=== PATIENT | female | born 1935 | race Caucasian/White ===

== ENCOUNTER 2017-05-16 13:22 | Inpatient (IN) | payer OTHER ==
[~2017-05-16] VITALS: Ht 165.1 cm; Wt 74.8 kg
[2017-05-16 14:09] VITALS: BP 136/88
--- NOTE | 2017-05-16 14:13 | NUR ---
DR WHITE IN ROOM FOR EXAM, PT C/O PAIN TO LEFT HIP AREA 02/26
[2017-05-16] MEDS ORDERED: MORPHINE SULFATE 2 MG/ML SYR IVP ONE (14:20)
[2017-05-16] MEDS ORDERED: NACL 0.9% 500 ML IV ONE ×2 (14:20)
[2017-05-16] MEDS ORDERED: ALPR0.5T2 PO (14:20)
[2017-05-16] MEDS ORDERED: [UNRECOGNIZED DRUG - CODE] PO (14:20)
[2017-05-16 14:31] LABS: BASOPHILS # (AUTO) 0.1 K/uL (0.00-0.22); BASOPHILS % (AUTO) 1.1 % (0.0-2.0); EOSINOPHILS # (AUTO) 0.3 K/uL (0-0.4); EOSINOPHILS % (AUTO) 2.4 % (0.0-4.0); HEMATOCRIT 42.9 % (36-48); LYMPHOCYTES # (AUTO) 1.6 K/uL (2.5-16.5); MEAN CORPUSCULAR HEMOGLOBIN 31 pg (27-31); MEAN CORPUSCULAR HGB CONC 33 g/dL (33-37); MEAN CORPUSCULAR VOLUME 94 fL (80-94); MONOCYTES # (AUTO) 0.5 K/uL (0.8-1.0); NEUTROPHILS % (AUTO) 79.5 % (42.2-75.2); PLATELET COUNT (AUTO) 199 K/uL (140-450); RED BLOOD CELL COUNT(AUTO) 4.56 MIL/uL (4.20-5.40); RED CELL DISTRIBUTION WIDTH 15.1 % (11.6-13.7); WHITE BLOOD COUNT (AUTO) 12.5 K/uL (4.8-10.8)
[2017-05-16 15:20] LABS: ALBUMIN 2.7 g/dL (3.4-5.0); ANION GAP 6.8 (8-16); ASPARTATE AMINOTRANSFERASE 38 U/L (15-37); CARBON DIOXIDE 31.3 mmol/L (21-32); CHLORIDE 106 mmol/L (98-107); CREATININE 0.9 mg/dL (0.6-1.3); GLUCOSE 142 mg/dL (74-106); POTASSIUM 4.1 mmol/L (3.5-5.1); SODIUM SERUM 140 mmol/L (136-145); TOTAL BILIRUBIN 0.5 mg/dL (0.0-1.0); UREA NITROGEN, BLOOD 16 mg/dL (7-18)
--- NOTE | 2017-05-16 15:49 | NUR ---
SON AT BEDSIDE, REPORTS PT IS STILL C/O PAIN. DR WHITE INFORMED.AWAITING FOR ORDERS
[2017-05-16] MEDS ORDERED: NACL 0.9% 1,000 ML IV SCH (16:14)
[2017-05-16] MEDS ORDERED: ACETAMINOPHEN 325 MG TAB PO PRN (16:15)
[2017-05-16] MEDS ORDERED: ONDANSETRON 4 MG/2 ML VIAL IVP PRN (16:15)
--- NOTE | 2017-05-16 16:19 | NUR ---
DR WHITE INFORMED AGAIN THAT PT IS C/O LEFT HIP PAIN, STATES HE CORINNE PUT IN ORDERS.
[2017-05-16] MEDS: MORPHINE SULFATE 2 MG/ML SYR IVP PRN ×2 (16:24→21:25)
--- NOTE | 2017-05-16 16:26 | NUR ---
MEDICATED ORDERED. SON AT BEDSIDE, UPDATED ON PLAN OF CARE, VERBALIZED UNDERSTANDING.
--- NOTE | 2017-05-16 16:43 | NUR ---
Patient will be admitted to care of rn. Admited to . Will go to room. Belongings list completed. Report to .
[2017-05-16] MEDS: SODIUM PHOSPHATE 118 ML ENEM RC SCH ×2 (17:00→17:29)
[2017-05-16] MEDS ORDERED: ALPRAZolam 0.5 MG TAB PO SCH (17:00)
--- NOTE | 2017-05-16 17:03 | NUR ---
REPORT GIVEN TO JOCY KRISHNAN IN TELE, BELONGINGS WITH PT. INFORMED HER THAT SON BROUGHT IN HOME MEDS EULOIGO.
[2017-05-16 17:24] LABS: APPEARANCE,URINE HAZY (CLEAR); BILIRUBIN,URINE NEGATIVE (NEGATIVE); BLOOD, URINE TRACE-L (NEGATIVE); COLOR,URINE YELLOW (YELLOW); LEUKOCYTE ESTERASE ,URINE TRACE (NEGATIVE); NITRITE, URINE POSITIVE (NEGATIVE); UGLUCOSE NEGATIVE (NEGATIVE)
[2017-05-16 17:29] LABS: RBC,URINE 3-10 (FEW) /HPF (0-5); WBC,URINE 6-15 (FEW) /HPF (0-5)
[2017-05-16 17:30] VITALS: BP 126/62
--- NOTE | 2017-05-16 17:30 | NUR ---
RECEIVED PT VIA GURNEY FROM THE ER. PT IN STABLE CONDITION. PT AAOX4, ON ROOM AIR. IV TO L AC 20G PATENT AND INTACT, INFUSING WELL. SKIN IS INTACT. RESPIRATIONS ARE EVEN AND UNLABORED. SKIN IS WARM AND DRY TO TOUCH. INITIAL ASSESSMENT COMPLETED. PLAN OF CARE DISCUSSED WITH SON AND PT AT THE BEDSIDE, VERBALIZED UNDERSTANDING. ALL SAFETY PRECAUTIONS MET, CALL LIGHT WITHIN REACH, WILL CONTINUE TO MONITOR
[2017-05-16 17:34] LABS: BARBITURATE, URINE NEG. ng/ml (NEG <=200); BENZODIAZEPINE, URINE POS. ng/mL (NEG <=200); CANNABINOID, URINE NEG. ng/mL (NEG <=50); COCAINE, URINE NEG. ng/mL (NEG <=300); OPIATE, URINE NEG. ng/mL (NEG <=2000); PHENCYCLIDINE SCREEN,URINE NEG. ng/mL (NEG <=25)
[2017-05-16] MEDS: VENLAFAXINE 37.5 MG TAB PO SCH (17:43)
[2017-05-16] MEDS: CYCLOBENZAPRINE 10 MG TAB PO SCH (17:44)
--- NOTE | 2017-05-16 17:45 | NUR ---
ARCHITECT INTERNSHIP NUMBER [id number] USED TO DISCUSS ADMISSION QUESTIONS AND MEDICATIONS THAT WILL BE GIVEN, USES, SIDE EFFECTS AND BENEFITS. PT AND SON VERBALIZED UNDERSTANDING. ALL SAFETY PRECAUTIONS MET, CALL LIGHT WITHIN REACH, WILL CONTINUE TO MONITOR
[2017-05-16 17:54] LABS: CHOL/HDL RATIO 3.4 (1-4.5); FREE T4 (FREE THYROXINE) 1.31 ng/dL (0.76-1.46); MAGNESIUM 2.1 mg/dL (1.8-2.4); PHOSPHORUS 3.4 mg/dL (2.5-4.9); THYROID STIMULATING HORMONE 2.48 uIU/mL (0.34-3.74)
[2017-05-16] MEDS: DEXT 5% /NACL 0.9% 1,000 ML IV SCH (18:30)
[2017-05-16] MEDS ORDERED: DEXTROSE 50% 50 ML SYR IVP PRN (18:35)
--- NOTE | 2017-05-16 19:00 | NUR ---
CRITICAL LAB VALUE RECEIVED FOR LACTIC ACID 3.[address] FAUSTIN AWARE
--- NOTE | 2017-05-16 19:15 | NUR ---
DR. ESCAMILLA IN TO SEE PT, EXPLAINED PROCEDURE TO PT AND SON, VERBALIZED UNDERSTANDING. DR. ESCAMILLA SAID HE WOULD DO THE SURGERY TOMORROW AND ORDERED FOR CONSENT TO BE SIGNED
[2017-05-16 20:00] VITALS: BP 102/62
[2017-05-16] MEDS ORDERED: cefTRIAXone 1,000 MG VIAL ONE (20:01)
[2017-05-16] MEDS: BISACODYL 10 MG SUPP RC PRN (20:18)
--- NOTE | 2017-05-16 20:45 | NUR ---
VACUUM PLASTIC FORMING MACHINE OPERATOR [id number] USED FOR SIGNED CONSENT FOR THE OPEN TREATMENT OF LEFT HIP FX. PT AND SON VERBALIZED UNDERSTANDING.
--- NOTE | 2017-05-16 21:00 | NUR ---
PAGED DR. FAUSTIN TO CHANGE URINE CULTURE, AND MRSA TO COLLECTED
--- NOTE | 2017-05-16 21:02 | NUR ---
PT BEING WHEELED OFF THE FLOOR IN STABLE CONDITION FOR CT OF THE HEAD. NO S/S OF DISTRESS
--- NOTE | 2017-05-16 21:05 | NUR ---
PAGED DR. FAUSTIN REGARDING UNCOLLECTED BLOOD CULTURE ORDER
--- NOTE | 2017-05-16 21:20 | NUR ---
PT BACK FROM CT IN STABLE CONDITION
[2017-05-16] MEDS: CALCIUM CARB/VIT-D 500 MG/200 IU 1 TAB PO SCH (21:26)
[2017-05-16] MEDS: ALPRAZolam 0.5 MG TAB PO SCH (21:26)
[2017-05-16] MEDS: DOCUSATE SODIUM 100 MG GELCAP PO SCH (21:28)
[2017-05-16] MEDS: BLOOD GLUCOSE MONITORING 1 DEV DEV FS SCH (21:35)
[2017-05-16] MEDS: INSULIN LISPRO SLIDING SCALE 100 UNITS/ML VIAL SUBQ PRN (21:35)
--- NOTE | 2017-05-16 22:38 | NUR ---
CRITICAL LAB VALUE OF LACTIC ACID 3.[address] FAUSTIN AWARE
[2017-05-16 23:13] LABS: APPEARANCE,URINE SL CLOUDY (CLEAR); BILIRUBIN,URINE NEGATIVE (NEGATIVE); BLOOD, URINE TRACE-I (NEGATIVE); COLOR,URINE YELLOW (YELLOW); LEUKOCYTE ESTERASE ,URINE NEGATIVE (NEGATIVE); NITRITE, URINE POSITIVE (NEGATIVE); UGLUCOSE NEGATIVE (NEGATIVE)
[2017-05-17] VITALS (10 sets, daily range): BP systolic 91–129; BP diastolic 52–75
[2017-05-17 00:07] LABS: RBC,URINE 0-5 (RARE) /HPF (0-5)
[2017-05-17] MEDS: MORPHINE SULFATE 2 MG/ML SYR IVP PRN ×2 (05:53→23:44)
--- NOTE | 2017-05-17 06:20 | NUR ---
DR. ORELLANA PUTTING PT IN BUCKS TRACTION NOW
[2017-05-17] MEDS: BLOOD GLUCOSE MONITORING 1 DEV DEV FS SCH ×4 (06:38→20:53)
[2017-05-17] MEDS: INSULIN LISPRO SLIDING SCALE 100 UNITS/ML VIAL SUBQ PRN ×3 (06:38→21:01)
[2017-05-17 06:59] LABS: BASOPHILS # (AUTO) 0.1 K/uL (0.00-0.22); EOSINOPHILS % (AUTO) 0.2 % (0.0-4.0); HEMATOCRIT 34.7 % (36-48); HEMOGLOBIN 11.6 g/dL (12.0-16.0); LYMPHOCYTES % (AUTO) 14.9 % (20.5-51.1); MEAN CORPUSCULAR HEMOGLOBIN 32 pg (27-31); MEAN CORPUSCULAR HGB CONC 33 g/dL (33-37); MEAN CORPUSCULAR VOLUME 95 fL (80-94); MONOCYTES # (AUTO) 1.1 K/uL (0.8-1.0); NEUTROPHILS # (AUTO) 4.8 K/uL (1.8-7.7); NEUTROPHILS % (AUTO) 67.9 % (42.2-75.2); PLATELET COUNT (AUTO) 160 K/uL (140-450); RED BLOOD CELL COUNT(AUTO) 3.65 MIL/uL (4.20-5.40); RED CELL DISTRIBUTION WIDTH 14.6 % (11.6-13.7)
--- NOTE | 2017-05-17 07:15 | NUR ---
ASSUMED CONTINUITY OF CARE. NO SIGNS AND SYMPTOMS OF ACUTE DISTRESS NOTICED. INITIAL ASSESSMENT DONE. KEEP COMFORTABLE ON BED. EXPLAINED DIAGNOSIS, PLAN OF CARE, PAIN MANAGEMENT TEACHING, USE OF CALL LIGHT/BED/TV/BATHROOM. VERBALIZED UNDERSTANDING. FALL PRECAUTION APPLIED. CALL LIGHT WITHIN REACH.
--- NOTE | 2017-05-17 07:22 | NUR ---
REPORT GIVEN TO STEPHANY PEREZ FOR CONTINUITY OF CARE, OT IN STABLE CONDITION
[2017-05-17 07:25] LABS: ANION GAP 8.5 (8-16); CARBON DIOXIDE 29.3 mmol/L (21-32); CHLORIDE 108 mmol/L (98-107); CREATININE 0.9 mg/dL (0.6-1.3); GLUCOSE 186 mg/dL (74-106); POTASSIUM 3.8 mmol/L (3.5-5.1); SODIUM SERUM 142 mmol/L (136-145); UREA NITROGEN, BLOOD 16 mg/dL (7-18)
--- NOTE | 2017-05-17 07:25 | NUR ---
Patient's Plan of Care was discussed and reviewed with ANA: STEPHANY Hwang LVN.
[2017-05-17] MEDS: PANTOPRAZOLE 40 MG INJ VIAL IVP SCH (08:46)
[2017-05-17] MEDS: DOCUSATE SODIUM 100 MG GELCAP PO SCH ×2 (08:52→20:44)
[2017-05-17] MEDS: LACTOBACILLUS RHAMNOSUS GG 1 EACH CAP PO SCH (08:53)
[2017-05-17] MEDS: CYCLOBENZAPRINE 10 MG TAB PO SCH ×3 (08:53→16:50)
[2017-05-17] MEDS: CALCIUM CARB/VIT-D 500 MG/200 IU 1 TAB PO SCH ×2 (08:53→20:44)
[2017-05-17] MEDS: VENLAFAXINE 37.5 MG TAB PO SCH (08:53)
[2017-05-17] MEDS: ALPRAZolam 0.5 MG TAB PO SCH ×2 (08:54→20:43)
--- NOTE | 2017-05-17 09:21 | NUR ---
PATIENT HAS BEEN SCREENED AND CATEGORIZED HIGH NUTRITION RISK. PATIENT WILL BE SEEN WITHIN 1-2 DAYS OF ADMISSION. 05/16/17-05/17/[address]
[2017-05-17] MEDS ORDERED: BUPIVACAINE-MPF 0.25% 30 ML VIAL INJ ONE (10:35)
[2017-05-17] MEDS ORDERED: ceFAZolin 1,000 MG VIAL ONE ×4 (10:35→20:59)
--- NOTE | 2017-05-17 10:38 | NUR ---
WENT TO OR FOR PROCEDURE VIA GURNEY, ACCOMPANIED BY PTSean PARKER. IN STABLE CONDITION.
[2017-05-17] MEDS ORDERED: fentaNYL 0.05 MG/ML VIAL ONE (11:02)
[2017-05-17] MEDS ORDERED: SEVOFLURANE 250 ML BTL INH ONE (11:25)
[2017-05-17] MEDS ORDERED: ONDANSETRON 4 MG/2 ML VIAL IVP ONE (11:25)
[2017-05-17] MEDS ORDERED: KETOROLAC 15 MG/ML VIAL IM ONE (11:25)
[2017-05-17] MEDS: DEXT 5% /NACL 0.9% 1,000 ML IV SCH (12:28)
[2017-05-17 14:11] LABS: BASOPHILS # (AUTO) 0.2 K/uL (0.00-0.22); BASOPHILS % (AUTO) 1.5 % (0.0-2.0); EOSINOPHILS % (AUTO) 0.2 % (0.0-4.0); HEMATOCRIT 24.8 % (36-48); HEMOGLOBIN 8.3 g/dL (12.0-16.0); LYMPHOCYTES # (AUTO) 0.7 K/uL (2.5-16.5); LYMPHOCYTES % (AUTO) 5.5 % (20.5-51.1); MEAN CORPUSCULAR HEMOGLOBIN 31 pg (27-31); MEAN CORPUSCULAR HGB CONC 33 g/dL (33-37); MEAN CORPUSCULAR VOLUME 93 fL (80-94); MONOCYTES # (AUTO) 1.1 K/uL (0.8-1.0); NEUTROPHILS # (AUTO) 10.7 K/uL (1.8-7.7); NEUTROPHILS % (AUTO) 83.8 % (42.2-75.2); PLATELET COUNT (AUTO) 157 K/uL (140-450); RED BLOOD CELL COUNT(AUTO) 2.67 MIL/uL (4.20-5.40); RED CELL DISTRIBUTION WIDTH 14.5 % (11.6-13.7); WHITE BLOOD COUNT (AUTO) 12.7 K/uL (4.8-10.8)
--- NOTE | 2017-05-17 14:34 | NUR ---
05/17/17 RD INITIAL ASSESSMENT COMPLETED PLEASE REFER TO NUTRITION ASSESSMENT UNDER CARE ACTIVITY FOR ESTIMATED NUTRITIONAL NEEDS. 1.PT TO REMAIN NPO UNTIL MEDICALLY NECESSARY TO ADVANCE DIET 2.ADVANCE TO 60 GM CCHO DIET ONCE APPROPRIATE. 3.RD TO FOLLOW-UP IN 2-3 DAYS, HIGH RISK JESSE HOOVER, RD
--- NOTE | 2017-05-17 14:35 | NUR ---
BACK FROM OR VIA GURNEY. AWAKE, ALERT, AND ORIENTED X3. IN STABLE CONDITION. KEEP COMFORTABLE ON BED.
--- NOTE | 2017-05-17 19:19 | NUR ---
BEDSIDE REPORT GIVEN TO JOCY WARREN -EULOGIO. IVF INFUSING WELL. IN STABLE CONDITION.
--- NOTE | 2017-05-17 19:20 | NUR ---
REPORT RECEIVED FROM DAY NURSE STEPHANY KRISHNAN, PT IN STABLE CONDITION. NO S/S OF DISTRESS NOTED. PT IS AAOX3, S/P OPEN TREATMENT OF THE L HIP. PT HAS 3 INCISIONS COVERED BY DRESSING FROM SURGEON. DRESSING IS DRY AND INTACT AT THIS TIME. IV TO L AC 20G PATENT AND INTACT, INFUSING WELL. RESPIRATIONS ARE EVEN AND UNLABORED. SKIN IS WARM AND DRY TO TOUCH. MEJIA IS DRAINING CLEAR YELLOW URINE VIA GRAVITY. SON AND HIS ARE AT THE BEDSIDE. INITIAL ASSESSMENT COMPLETED. PLAN OF CARE DISCUSSED WITH PT AND SON, AT THE BEDSIDE, VERBALIZED UNDERSTANDING. ALL SAFETY PRECAUTIONS MET, CALL LIGHT WITHIN REACH, WILL CONTINUE TO MONITOR
--- NOTE | 2017-05-17 20:15 | NUR ---
PT IN STABLE CONDITION. NO S/S OF DISTRESS NOTED. VS STABLE. PTS DRESSINGS DRY AND INTACT, WILL CONTINUE TO MONITOR
--- NOTE | 2017-05-17 22:00 | NUR ---
PT IN STABLE CONDITION. NO S/S OF DISTRESS NOTED. VS STABLE. PTS DRESSINGS DRY AND INTACT, WILL CONTINUE TO MONITOR
--- NOTE | 2017-05-17 23:42 | NUR ---
PTS DRESSING ON HIP AND DRESSING BY KNEE ARE ACTIVELY BLEEDING NOW. DRESSING IS BECOMING SATURATED. PAGED DR. ESCAMILLA. CHARGE NURSE WINTER KRISHNAN IS PUTTING ON NEW DRESSING AND REINFORCING
[2017-05-18] VITALS (8 sets, daily range): BP systolic 104–129; BP diastolic 55–81
--- NOTE | 2017-05-18 00:15 | NUR ---
PAGED DR. ESCAMILLA AGAIN, AWAITING CALL BACK
--- NOTE | 2017-05-18 02:00 | NUR ---
VS STABLE AT THIS TIME, DRESSING ARE DRY AND INTACT. WILL CONTINUE TO MONITOR
--- NOTE | 2017-05-18 04:00 | NUR ---
PT IN STABLE CONDITION. NO S/S OF DISTRESS NOTED. DRESSING DRY AND INTACT
--- NOTE | 2017-05-18 05:00 | NUR ---
RESIDENTS MADE AWARE OF SATURATED DRESSING FROM THE NIGHT AND THAT DRESSING WAS CHANGED
[2017-05-18] MEDS ORDERED: ceFAZolin 1,000 MG VIAL ONE (05:14)
[2017-05-18] MEDS: INSULIN LISPRO SLIDING SCALE 100 UNITS/ML VIAL SUBQ PRN ×3 (06:26→17:40)
[2017-05-18] MEDS: BLOOD GLUCOSE MONITORING 1 DEV DEV FS SCH ×4 (06:32→21:54)
--- NOTE | 2017-05-18 07:32 | NUR ---
GAVE REPORT TO DAY NURSE FOR CONTINUITY OF CARE, PT IN STABLE CONDITION. NO S/S OF DISTRESS NOTED. DRESSINGS DRY AND INTACT, IV PATENT
--- NOTE | 2017-05-18 07:35 | NUR ---
RECEIVED PT ON BED ASLEEP, AROUSABLE, ORIENTED X1. NO SIGNS OF PAIN AT THIS TIME. IV TO LT AC PATENT AND INTACT. CHEST, DIMINISHED AIR ENTRY TO THE BASES. ABDOMEN SOFT, BOWEL SOUNDS PRESENT. WILL REPOSITION PT EVERY 2 HRS. WITH LT HIP SURGICAL INCISIONS S/P OPEN TREATMENT OF LT HIP FX, DRESSINGS DRY AND AND INTACT. WITH MEJIA CATHETER DRAINING MODERATE AMOUNTS OF SLIGHTLY DARK FRANCES URINE. WILL REPOSITION PT EVERY 2 HRS. BED ON LOW POSITION, 3 SIDE RAILS UP, BED ALARM ON. WILL CONTINUE TO MONITOR PT.
[2017-05-18 08:11] LABS: BASOPHILS # (AUTO) 0.1 K/uL (0.00-0.22); BASOPHILS % (AUTO) 1.3 % (0.0-2.0); EOSINOPHILS % (AUTO) 0.2 % (0.0-4.0); HEMATOCRIT 23.7 % (36-48); HEMOGLOBIN 7.7 g/dL (12.0-16.0); LYMPHOCYTES # (AUTO) 1.2 K/uL (2.5-16.5); MEAN CORPUSCULAR HEMOGLOBIN 31 pg (27-31); MEAN CORPUSCULAR HGB CONC 33 g/dL (33-37); MEAN CORPUSCULAR VOLUME 96 fL (80-94); NEUTROPHILS # (AUTO) 6.6 K/uL (1.8-7.7); NEUTROPHILS % (AUTO) 74.5 % (42.2-75.2); PLATELET COUNT (AUTO) 163 K/uL (140-450); RED BLOOD CELL COUNT(AUTO) 2.47 MIL/uL (4.20-5.40); WHITE BLOOD COUNT (AUTO) 8.9 K/uL (4.8-10.8)
[2017-05-18 08:14] LABS: ANION GAP 10.3 (8-16); CHLORIDE 111 mmol/L (98-107); GLUCOSE 180 mg/dL (74-106); POTASSIUM 4.3 mmol/L (3.5-5.1); SODIUM SERUM 146 mmol/L (136-145); UREA NITROGEN, BLOOD 20 mg/dL (7-18)
[2017-05-18] MEDS: CALCIUM CARB/VIT-D 500 MG/200 IU 1 TAB PO SCH ×2 (10:02→21:28)
[2017-05-18] MEDS: LACTOBACILLUS RHAMNOSUS GG 1 EACH CAP PO SCH (10:02)
[2017-05-18] MEDS: DOCUSATE SODIUM 100 MG GELCAP PO SCH ×2 (10:02→21:39)
[2017-05-18] MEDS: CYCLOBENZAPRINE 10 MG TAB PO SCH ×3 (10:03→17:17)
[2017-05-18] MEDS: ALPRAZolam 0.5 MG TAB PO SCH ×2 (10:03→21:29)
[2017-05-18] MEDS: VENLAFAXINE 37.5 MG TAB PO SCH (10:03)
[2017-05-18] MEDS: PANTOPRAZOLE 40 MG INJ VIAL IVP SCH (10:04)
[2017-05-18] MEDS ORDERED: SODIUM PHOSPHATE 118 ML ENEM RC SCH (10:18)
--- NOTE | 2017-05-18 13:00 | NUR ---
PT MOVED TO ISOLATION ROOM.
--- NOTE | 2017-05-18 13:15 | NUR ---
MODERATE AMOUNT OF BLEEDING NOTED ON LEFT KNEE INCISION. DRESSING CHANGED, [place] WRAPPED APPLIED. DR. SWEET NOTIFIED.
[2017-05-18 15:05] LABS: NEUTROPHILS # (AUTO) 5.9 K/uL (1.8-7.7)
[2017-05-18 15:16] LABS: BASOPHILS # (AUTO) 0.1 K/uL (0.00-0.22); BASOPHILS % (AUTO) 0.8 % (0.0-2.0); EOSINOPHILS # (AUTO) 0.1 K/uL (0-0.4); EOSINOPHILS % (AUTO) 1.7 % (0.0-4.0); LYMPHOCYTES # (AUTO) 1.1 K/uL (2.5-16.5); LYMPHOCYTES % (AUTO) 12.9 % (20.5-51.1); MEAN CORPUSCULAR HEMOGLOBIN 31 pg (27-31); MEAN CORPUSCULAR HGB CONC 33 g/dL (33-37); MEAN CORPUSCULAR VOLUME 95 fL (80-94); MONOCYTES % (AUTO) 12.5 % (1.7-9.3); NEUTROPHILS % (AUTO) 72.1 % (42.2-75.2); PLATELET COUNT (AUTO) 149 K/uL (140-450); RED CELL DISTRIBUTION WIDTH 14.9 % (11.6-13.7); WHITE BLOOD COUNT (AUTO) 8.2 K/uL (4.8-10.8)
[2017-05-18 15:20] LABS: HEMATOCRIT 20.9 % (36-48); HEMOGLOBIN 6.9 g/dL (12.0-16.0)
--- NOTE | 2017-05-18 15:30 | NUR ---
CONSENT FOR THORACENTESIS SIGNED BY PT'S SON AT THE BEDSIDE, VERBALIZED UNDERSTANDING OF THE PROCEDURE. DR. JACK CAME BUT CANCELLED THE PROCEDURE FOR NOW, STATED THAT PT IS NOT STABLE ENOUGH TO TURN MORE TO HER LEFT SIDE FOR THE PROCEDURE.
[2017-05-18] MEDS: HYDROcodone/APAP 7.5/325 MG 1 TAB PO PRN (17:17)
--- NOTE | 2017-05-18 18:00 | NUR ---
1 UNIT PRBC STARTED. WILL OBSERVE FOR ANY BLOOD TRANSFUSION REACTIONS.
--- NOTE | 2017-05-18 18:55 | NUR ---
SMALL AMOUNT OF LEAKING NOTED ON PRESENT IV SITE WHERE BLOOD TRANSFUSION ON GOING. TRIED RESTARTING A NEW LINE 2X BUT FAILED. WILL ENDORSE TO NEXT SHIFT NURSE FOR CONTINUITY OF CARE.
--- NOTE | 2017-05-18 19:30 | NUR ---
RECEIVED BEDSIDE REPORT FROM DAY SHIFT NURSE JACKIE RN, PT STABLE, NO DISTRESS NOTED, IV TO THE L AC 20G RUNNING PRBC, SMALL AMOUNT LEAKING NOTED, WILL ATTEMPT TO PUT NEW IV IN, MEJIA IN PLACE DRAINING YELLOW URINE, INITIAL ASSESSMENT DONE, ALL SAFETY PRECAUTION MET, FAMILY BY BEDSIDE, CALL LIGHT WITHIN REACH, WILL CONTINUE TO MONITOR.
--- NOTE | 2017-05-18 20:00 | NUR ---
NEW IV INSERTED 22 G ON THE L FA, PT TOLERATED WELL, NO DISTRESS NOTED, FAMILY BY BEDSIDE, CALL LIGHT WITHIN REACH,WILL CONTINUE TO MONITOR.
--- NOTE | 2017-05-18 21:00 | NUR ---
HEPARIN NOT GIVEN, NOTIFIED DR. FAUSTIN REGARDING PT BLEEDING ON THE L KNEE, DR ORDER TO HOLD HEPARIN.
--- NOTE | 2017-05-18 21:39 | NUR ---
DUE MEDICATION GIVEN, PT TOLERATED WELL, NO DISTRESS NOTED, FAMILY BY BEDSIDE NO DISTRESS NOTED, CALL LIGHT WITHIN REACH, WILL CONTINUE TO MONITOR.
[2017-05-18 21:59] LABS: BASOPHILS # (AUTO) 0.2 K/uL (0.00-0.22); BASOPHILS % (AUTO) 1.9 % (0.0-2.0); EOSINOPHILS # (AUTO) 0.1 K/uL (0-0.4); EOSINOPHILS % (AUTO) 0.8 % (0.0-4.0); HEMATOCRIT 25.3 % (36-48); HEMOGLOBIN 8.3 g/dL (12.0-16.0); LYMPHOCYTES # (AUTO) 1.2 K/uL (2.5-16.5); LYMPHOCYTES % (AUTO) 12.5 % (20.5-51.1); MEAN CORPUSCULAR HEMOGLOBIN 30 pg (27-31); MEAN CORPUSCULAR HGB CONC 33 g/dL (33-37); MEAN CORPUSCULAR VOLUME 93 fL (80-94); MONOCYTES # (AUTO) 1.3 K/uL (0.8-1.0); MONOCYTES % (AUTO) 14.4 % (1.7-9.3); NEUTROPHILS # (AUTO) 6.5 K/uL (1.8-7.7); NEUTROPHILS % (AUTO) 70.4 % (42.2-75.2); PLATELET COUNT (AUTO) 147 K/uL (140-450); RED BLOOD CELL COUNT(AUTO) 2.72 MIL/uL (4.20-5.40); RED CELL DISTRIBUTION WIDTH 15.3 % (11.6-13.7); WHITE BLOOD COUNT (AUTO) 9.3 K/uL (4.8-10.8)
[2017-05-19] VITALS (7 sets, daily range): BP systolic 103–115; BP diastolic 53–67
[2017-05-19] MEDS: HYDROcodone/APAP 7.5/325 MG 1 TAB PO PRN ×2 (03:24→16:29)
[2017-05-19] MEDS: BLOOD GLUCOSE MONITORING 1 DEV DEV FS SCH ×4 (06:43→21:02)
--- NOTE | 2017-05-19 07:15 | NUR ---
ENDORSEMENT RECEIVED FROM CORRUGATOR NURSE. PATIENT IS SLEEPING. RESPIRATION EVEN, UNLABOR. SKIN DRY AND WARM. IV PATENT AND INTACT. NO DISTRESS NOTED AT THIS TIME. BED AT LOW POSITION, SIDE RAILS UP. FAMILY AT BEDSIDE. CALL LIGHT WITHIN REACH. WILL CONTINUE TO MONITOR
--- NOTE | 2017-05-19 07:30 | NUR ---
GAVE BEDSIDE REPORT TO DAY SHIFT NURSE STAR KRISHNAN, PT STABLE, NO DISTRESS NOTED, ENDORSED PLAN OF CARE, CALL LIGHT WITHIN REACH.
[2017-05-19 08:46] LABS: BASOPHILS # (AUTO) 0.1 K/uL (0.00-0.22); EOSINOPHILS # (AUTO) 0.1 K/uL (0-0.4); EOSINOPHILS % (AUTO) 1.3 % (0.0-4.0); HEMATOCRIT 23.4 % (36-48); LYMPHOCYTES # (AUTO) 1.2 K/uL (2.5-16.5); LYMPHOCYTES % (AUTO) 14.4 % (20.5-51.1); MEAN CORPUSCULAR HEMOGLOBIN 32 pg (27-31); MEAN CORPUSCULAR HGB CONC 34 g/dL (33-37); MEAN CORPUSCULAR VOLUME 93 fL (80-94); MONOCYTES # (AUTO) 0.9 K/uL (0.8-1.0); MONOCYTES % (AUTO) 10.5 % (1.7-9.3); NEUTROPHILS # (AUTO) 5.8 K/uL (1.8-7.7); NEUTROPHILS % (AUTO) 72.8 % (42.2-75.2); PLATELET COUNT (AUTO) 125 K/uL (140-450); RED BLOOD CELL COUNT(AUTO) 2.51 MIL/uL (4.20-5.40); RED CELL DISTRIBUTION WIDTH 15.5 % (11.6-13.7); WHITE BLOOD COUNT (AUTO) 8.1 K/uL (4.8-10.8)
[2017-05-19] MEDS: LACTOBACILLUS RHAMNOSUS GG 1 EACH CAP PO SCH ×2 (09:00→09:53)
[2017-05-19 09:36] LABS: ANION GAP 6.4 (8-16); CARBON DIOXIDE 30.4 mmol/L (21-32); CHLORIDE 112 mmol/L (98-107); CREATININE 0.9 mg/dL (0.6-1.3); GLUCOSE 161 mg/dL (74-106); POTASSIUM 3.8 mmol/L (3.5-5.1); SODIUM SERUM 145 mmol/L (136-145); UREA NITROGEN, BLOOD 21 mg/dL (7-18)
[2017-05-19 09:39] LABS: MAGNESIUM 1.9 mg/dL (1.8-2.4); PHOSPHORUS 2.4 mg/dL (2.5-4.9)
[2017-05-19] MEDS: PANTOPRAZOLE 40 MG INJ VIAL IVP SCH (09:51)
[2017-05-19] MEDS: CALCIUM CARB/VIT-D 500 MG/200 IU 1 TAB PO SCH ×2 (09:52→20:59)
[2017-05-19] MEDS: VENLAFAXINE 37.5 MG TAB PO SCH (09:52)
[2017-05-19] MEDS: ALPRAZolam 0.5 MG TAB PO SCH ×2 (09:52→21:00)
[2017-05-19] MEDS: CYCLOBENZAPRINE 10 MG TAB PO SCH ×3 (09:53→16:29)
[2017-05-19] MEDS: DOCUSATE SODIUM 100 MG GELCAP PO SCH ×2 (09:53→21:02)
[2017-05-19] MEDS ORDERED: NACL 0.9% 1,000 ML IV SCH (10:15)
--- NOTE | 2017-05-19 12:22 | NUR ---
05/19/17 RD FOLLOW UP COMPLETED PLEASE REFER TO NUTRITION PROGRESS NOTE UNDER CARE ACTIVITY FOR ESTIMATED NUTRITION NEEDS. RD RECOMMENDATIONS: 1. CONTINUE ON CCHO 60 GM DIET TOLERATED. 2. RDN TO PROVIDE DIET HEALTH SHAKES WITH ALL MEALS TO HELP MEET ESTIMATED NEEDS. 3. RDN TO FOLLOW-UP IN 3-5 DAYS, MODERATE RISK MARCE WALLACE MS, RDN
[2017-05-19] MEDS: INSULIN LISPRO SLIDING SCALE 100 UNITS/ML VIAL SUBQ PRN ×2 (12:28→17:15)
--- NOTE | 2017-05-19 13:00 | NUR ---
PATIENT IS AWAKE, ALERT. RESPIRATION EVEN, UNLABOR. DENIED PAIN AT THIS TIME. MED WAS GIVEN PER ORDER. FAMILY AT BEDSIDE. WOUND ASSESSMENT WAS DONE. CALL LIGHT WITHIN REACH
--- NOTE | 2017-05-19 15:31 | NUR ---
PATIENT IS AWAKE, ALERT. RESPIRATION EVEN, UNLABOR. DENIED PAIN, N/V AT THIS TIME. FAMILY AT BED SIDE. CALL LIGHT WITHIN REACH. WILL CONTINUE TO MONITOR
[2017-05-19 15:43] LABS: BASOPHILS # (AUTO) 0.1 K/uL (0.00-0.22); BASOPHILS % (AUTO) 1.3 % (0.0-2.0); EOSINOPHILS # (AUTO) 0.2 K/uL (0-0.4); EOSINOPHILS % (AUTO) 2.5 % (0.0-4.0); LYMPHOCYTES # (AUTO) 1.1 K/uL (2.5-16.5); LYMPHOCYTES % (AUTO) 13.9 % (20.5-51.1); MEAN CORPUSCULAR HEMOGLOBIN 32 pg (27-31); MEAN CORPUSCULAR HGB CONC 34 g/dL (33-37); MEAN CORPUSCULAR VOLUME 94 fL (80-94); MONOCYTES # (AUTO) 0.8 K/uL (0.8-1.0); MONOCYTES % (AUTO) 10.7 % (1.7-9.3); NEUTROPHILS # (AUTO) 5.7 K/uL (1.8-7.7); NEUTROPHILS % (AUTO) 71.6 % (42.2-75.2); PLATELET COUNT (AUTO) 116 K/uL (140-450); RED BLOOD CELL COUNT(AUTO) 2.16 MIL/uL (4.20-5.40); WHITE BLOOD COUNT (AUTO) 7.9 K/uL (4.8-10.8)
[2017-05-19 15:53] LABS: HEMATOCRIT 20.3 % (36-48); HEMOGLOBIN 6.9 g/dL (12.0-16.0)
--- NOTE | 2017-05-19 16:15 | NUR ---
DR. MATHIAS WAS MADE AWARE OF HG 6.9, HCT 20.3. WILL MEDICATE PER ORDER
[2017-05-19] MEDS: SODIUM PHOS / POTASSIUM PHOS 1 PKT PDR PO SCH (16:29)
[2017-05-19] MEDS: BISACODYL 10 MG SUPP RC PRN (16:36)
--- NOTE | 2017-05-19 16:57 | NUR ---
MED WAS GIVEN SUPPOSITORY PER ORDER. PATIENT TOLERATED WELL
--- NOTE | 2017-05-19 17:53 | NUR ---
PATIENT IS SLEEPING COMFORTABLY. RESPIRATION EVEN, UNLABOR. NO DISTRESS NOTED AT THIS TIME. IV PATENT AND INTACT. CALL LIGHT WITHIN REACH. FAMILY AT BEDSIDE. WILL CONTINUE TO MONITOR
--- NOTE | 2017-05-19 18:30 | NUR ---
PATIENT COMPLAINED OF LOWER ABDOMEN PAIN. MEJIA IS DRAINING OK. WILL MEDICATE PER ORDER. DRESSING WAS REENFORCED ON THE LEFT HIP, MINIMAL DRAINAGE.
--- NOTE | 2017-05-19 19:21 | NUR ---
ENDORSEMENT GIVEN TO THE SURGICAL SCHEDULER NURSE. PATIENT IS STABLE AT THIS TIME.
--- NOTE | 2017-05-19 19:22 | NUR ---
RECEIVED BEDSIDE REPORT FROM AUTOMATIC SERGING MACHINE OPERATOR NURSE STAR RN, PT STABLE, NO DISTRESS NOTED, REPORTED HAVING NO PAIN AT THIS MOMENT, DRESSING CLEAN DRY AND INTACT, ON 2LPM O2 VIA NC, SON BY BEDSIDE, INITIAL ASSESSMENT DONE, ALL SAFETY PRECAUTION MET, WILL CONTINUE TO MONITOR.
[2017-05-19] MEDS ORDERED: SODIUM PHOS / POTASSIUM PHOS 1 PKT PDR PO SCH (21:00)
--- NOTE | 2017-05-19 21:11 | NUR ---
DUE MEDICATION GIVEN, PT TOLERATED WELL, HEPARIN NOT GIVEN PER BLEEDING NOTED ON THE SURGICAL INCISION, PT STABLE, NO DISTRESS NOTED, SON BY BEDSIDE, CALL LIGHT WITHIN REACH, WILL CONTINUE TO MONITOR.
[2017-05-20] VITALS: BP 125/62
[2017-05-20] MEDS: MORPHINE SULFATE 2 MG/ML SYR IVP PRN ×3 (00:29→20:02)
--- NOTE | 2017-05-20 00:29 | NUR ---
PT CRYING AND MOANING, SON REPORTED PT HAVING PAIN OF 9/10, PT EVALUATED WITH FLACC AT 9/10, PAIN MEDICATION GIVEN, PT STABLE, NO DISTRESS NOTED, CALL LIGHT WITHIN REACH, SON BY BEDSIDE, WILL CONTINUE TO MONITOR.
--- NOTE | 2017-05-20 03:20 | NUR ---
CHECKED ON PT, PT SLEEPING COMFORTABLY, NO DISTRESS NOTED, STABLE, SON BY BED SIDE, CALL LIGHT WITHIN REACH, WILL CONTINUE TO MONITOR.
[2017-05-20 04:00] VITALS: BP 101/59
[2017-05-20] MEDS: BLOOD GLUCOSE MONITORING 1 DEV DEV FS SCH ×4 (06:16→21:03)
[2017-05-20] MEDS: INSULIN LISPRO SLIDING SCALE 100 UNITS/ML VIAL SUBQ PRN ×4 (06:16→21:22)
--- NOTE | 2017-05-20 07:13 | NUR ---
RECEIVED BEDSIDE REPORT TO DAY SHIFT NURSE STAR KRISHNAN, PT STABLE NO DISTRESS NOTED, SON BY BEDSIDE, CALL LIGHT WITHIN REACH. Addendum: 05/20/17 at 0728 by Payton Hook RN GAVE REPORT TO DAY SHIFT NURSE STAR KRISHNAN, ENDORSED PLAN OF CARE.
--- NOTE | 2017-05-20 07:14 | NUR ---
ENDORSEMENT RECEIVED FROM HOSE SEAMER NURSE. PATIENT IS SLEEPING COMFORTABLY. RESPIRATION EVEN, UNLABOR. SKIN DRY AND WARM. IV PATENT AND INTACT. NO DISTRESS NOTED. BED AT LOW POSITION, SIDE RAILS UP. FAMILY AT BEDSIDE. CALL LIGHT WITHIN REACH.
[2017-05-20 07:36] LABS: BASOPHILS # (AUTO) 0.1 K/uL (0.00-0.22); BASOPHILS % (AUTO) 1.2 % (0.0-2.0); EOSINOPHILS # (AUTO) 0.1 K/uL (0-0.4); EOSINOPHILS % (AUTO) 1.3 % (0.0-4.0); HEMATOCRIT 25.2 % (36-48); HEMOGLOBIN 8.4 g/dL (12.0-16.0); LYMPHOCYTES # (AUTO) 1.1 K/uL (2.5-16.5); LYMPHOCYTES % (AUTO) 11.9 % (20.5-51.1); MEAN CORPUSCULAR HEMOGLOBIN 31 pg (27-31); MEAN CORPUSCULAR HGB CONC 33 g/dL (33-37); MEAN CORPUSCULAR VOLUME 94 fL (80-94); MONOCYTES # (AUTO) 0.8 K/uL (0.8-1.0); NEUTROPHILS # (AUTO) 6.8 K/uL (1.8-7.7); NEUTROPHILS % (AUTO) 76.6 % (42.2-75.2); PLATELET COUNT (AUTO) 154 K/uL (140-450); RED BLOOD CELL COUNT(AUTO) 2.68 MIL/uL (4.20-5.40); RED CELL DISTRIBUTION WIDTH 15.5 % (11.6-13.7); WHITE BLOOD COUNT (AUTO) 8.9 K/uL (4.8-10.8)
[2017-05-20 07:49] LABS: ANION GAP 7.2 (8-16); CARBON DIOXIDE 28.7 mmol/L (21-32); CHLORIDE 112 mmol/L (98-107); CREATININE 0.8 mg/dL (0.6-1.3); GLUCOSE 161 mg/dL (74-106); POTASSIUM 3.9 mmol/L (3.5-5.1); SODIUM SERUM 144 mmol/L (136-145); UREA NITROGEN, BLOOD 21 mg/dL (7-18)
[2017-05-20 07:53] LABS: PHOSPHORUS 2.3 mg/dL (2.5-4.9)
[2017-05-20 08:00] VITALS: BP 97/51
[2017-05-20] MEDS: SODIUM PHOS / POTASSIUM PHOS 1 PKT PDR PO SCH ×3 (08:35→17:10)
[2017-05-20] MEDS: LACTOBACILLUS RHAMNOSUS GG 1 EACH CAP PO SCH (08:36)
[2017-05-20] MEDS: ALPRAZolam 0.5 MG TAB PO SCH ×3 (08:37→21:12)
[2017-05-20] MEDS: CALCIUM CARB/VIT-D 500 MG/200 IU 1 TAB PO SCH ×2 (08:37→21:12)
[2017-05-20] MEDS: CYCLOBENZAPRINE 10 MG TAB PO SCH ×3 (08:37→17:10)
[2017-05-20] MEDS: PANTOPRAZOLE 40 MG INJ VIAL IVP SCH (08:38)
[2017-05-20] MEDS: VENLAFAXINE 37.5 MG TAB PO SCH (08:38)
[2017-05-20] MEDS: DOCUSATE SODIUM 100 MG GELCAP PO SCH ×2 (08:48→21:12)
[2017-05-20] MEDS ORDERED: SODIUM PHOS / POTASSIUM PHOS 1 PKT PDR PO SCH (09:00)
[2017-05-20 12:00] VITALS: BP 109/54
--- NOTE | 2017-05-20 12:30 | NUR ---
NEW IV WAS PLACED ON LEFT AC, 20G. OLD IV 20G WAS REMOVED FROM RIGHT FOREARM, CATHETER TIP INTACT. NO ACTIVE BLEEDING SEEN. PATIENT TOLERATED WELL
--- NOTE | 2017-05-20 13:00 | NUR ---
DR. DONOHUE WAS MADE AWARE OF PATIENT'S TACHYCARDIA. ADVISED TO CONTINUE TO MONITOR
--- NOTE | 2017-05-20 14:49 | NUR ---
CT SCAN CONSENT WAS OBTAINED AT BEDSIDE, SIGNED BY PATIENT'S SON. COAL OR ORE CONTROLLER WAS USED, LEIGHA [id number]. PATIENT'S SON VERBALIZED UNDERSTANDING.
[2017-05-20] MEDS: NACL 0.9% 1,000 ML IV SCH (15:57)
[2017-05-20 16:00] VITALS: BP 117/60
[2017-05-20] MEDS: FERRIC GLUCONATE 125 MG in NACL 0.9% 100 ML IV SCH (17:11)
--- NOTE | 2017-05-20 17:54 | NUR ---
PATIENT'S SON REFUSED TO HAVE THE IV PLACED FOR THE CT SCAN. DR. VALLE WAS NOTIFIED
--- NOTE | 2017-05-20 18:30 | NUR ---
PATIENT IS AWAKE, BEING FED DINNER BY THE SON. RESPIRATION EVEN, UNLABOR. FLACC 0. NO DISTRESS NOTED. IV PATENT AND INTACT. CALL LIGHT WITHIN REACH
--- NOTE | 2017-05-20 19:17 | NUR ---
RECEIVED BEDSIDE REPORT FROM DAY SHIFT NURSE STAR RN, PT STABLE, NO DISTRESS NOTED, IV TO L AC 20 G RUNNING NS @ 80, DRESSING INTACT, SON BY BEDSIDE, INITIAL ASSESSMENT DONE, ALL SAFETY PRECAUTION MET, WILL CONTINUE TO MONITOR.
--- NOTE | 2017-05-20 19:23 | NUR ---
ENDORSEMENT GIVEN TO THE MERCHANDISE TEAM MANAGER NURSE. PATIENT IS STABLE AT THIS TIME
[2017-05-20 20:00] VITALS: BP 113/68
--- NOTE | 2017-05-20 21:00 | NUR ---
TALKED TO PT SON REGARDING IV INSERTION FOR CT WITH CONTRAST, PT SON STATED DID NOT WANT THE IV INSERTION AT THIS MOMENT, REPORTED TO DR. LUBIN, STATED UNDERSTANDING AND WILL D/C ORDER.
[2017-05-21] VITALS: BP 114/59
--- NOTE | 2017-05-21 00:01 | NUR ---
CHECKED ON PT, TOOK VS, VS WNL, PT REPORTED HAVING NO PAIN, PT SLEEPING, NO DISTRESS NOTED, STABLE, SON BY BEDSIDE, CALL LIGHT WITHIN REACH, WILL CONTINUE TO MONITOR.
--- NOTE | 2017-05-21 02:20 | NUR ---
CHECKED ON PT, PT DRINKING WATER HELPED BY SON, PT STABLE, NO DISTRESS NOTED, SON BY BEDSIDE, CALL LIGHT WITHIN REACH, WILL CONTINUE TO MONITOR.
[2017-05-21] MEDS: NACL 0.9% 1,000 ML IV SCH ×2 (03:34→16:55)
[2017-05-21 04:00] VITALS: BP 109/67
[2017-05-21] MEDS: BLOOD GLUCOSE MONITORING 1 DEV DEV FS SCH ×4 (07:12→21:49)
[2017-05-21] MEDS: INSULIN LISPRO SLIDING SCALE 100 UNITS/ML VIAL SUBQ PRN ×4 (07:13→21:48)
[2017-05-21 07:34] LABS: BASOPHILS # (AUTO) 0.1 K/uL (0.00-0.22); BASOPHILS % (AUTO) 1.1 % (0.0-2.0); EOSINOPHILS # (AUTO) 0.2 K/uL (0-0.4); HEMOGLOBIN 8.6 g/dL (12.0-16.0); LYMPHOCYTES # (AUTO) 1.1 K/uL (2.5-16.5); MEAN CORPUSCULAR HEMOGLOBIN 31 pg (27-31); MEAN CORPUSCULAR HGB CONC 33 g/dL (33-37); MEAN CORPUSCULAR VOLUME 95 fL (80-94); MONOCYTES % (AUTO) 11.2 % (1.7-9.3); NEUTROPHILS % (AUTO) 73.7 % (42.2-75.2); PLATELET COUNT (AUTO) 186 K/uL (140-450); RED BLOOD CELL COUNT(AUTO) 2.74 MIL/uL (4.20-5.40); RED CELL DISTRIBUTION WIDTH 15.7 % (11.6-13.7); WHITE BLOOD COUNT (AUTO) 9.4 K/uL (4.8-10.8)
--- NOTE | 2017-05-21 07:39 | NUR ---
GAVE BEDSIDE REPORT TO DAY SHIFT NURSE IVANIA KRISHNAN, ENDORSED PLAN OF CARE, SON BY BEDSIDE, PT STABLE NO DISTRESS NOTED, CALL LIGHT WITHIN REACH.
--- NOTE | 2017-05-21 07:40 | NUR ---
RECEIVED REPORT FROM PHARMACY TECH NURSE. PATIENT LYING IN BED SLEEPING, AROUSABLE BY VOICE. SON AT BEDSIDE. NO DISTRESS NOTED. RESPIRATIONS EVEN, UNLABORED, ON O2 2L/MIN VIA NC. AAOX1, CALM, COOPERATIVE, SKIN COLOR APPROPRIATE TO ETHNICITY, WARM TO TOUCH. THREE LEFT LOWER EXTREMITY WOUND S/P LEFT HIP OPEN SURGERY THAT IS HOT BILLET SHEAR OPERATOR. NO DRAINAGE NOTED. NO S/S OF INFECTION NOTED. LUNGS CTA ON ALL LOBES. ABDOMEN SOFT, NON-DISTENDED. REVIEWED PLAN OF CARE WITH PATIENT. PATIENT VERBALIZED UNDERSTANDING. REINFORCEMENT NEEDED. SAFETY MEASURES IN PLACE, CALL LIGHT WITHIN REACH, FALL PREVENTIONS IN PLACE. WILL CONTINUE TO MONITOR.
[2017-05-21 07:43] LABS: ANION GAP 8.3 (8-16); CARBON DIOXIDE 28.2 mmol/L (21-32); CHLORIDE 111 mmol/L (98-107); CREATININE 0.7 mg/dL (0.6-1.3); GLUCOSE 168 mg/dL (74-106); POTASSIUM 3.5 mmol/L (3.5-5.1); SODIUM SERUM 144 mmol/L (136-145); UREA NITROGEN, BLOOD 19 mg/dL (7-18)
[2017-05-21 07:58] LABS: MAGNESIUM 1.9 mg/dL (1.8-2.4); PHOSPHORUS 2.3 mg/dL (2.5-4.9)
[2017-05-21 08:00] VITALS: BP 117/67
[2017-05-21] MEDS: DOCUSATE SODIUM 100 MG GELCAP PO SCH ×2 (08:43→21:37)
[2017-05-21] MEDS: LACTOBACILLUS RHAMNOSUS GG 1 EACH CAP PO SCH (08:43)
[2017-05-21] MEDS: VENLAFAXINE 37.5 MG TAB PO SCH (08:43)
[2017-05-21] MEDS: SODIUM PHOS / POTASSIUM PHOS 1 PKT PDR PO SCH ×6 (08:43→21:38)
[2017-05-21] MEDS: ALPRAZolam 0.5 MG TAB PO SCH ×2 (08:43→21:37)
[2017-05-21] MEDS: PANTOPRAZOLE 40 MG INJ VIAL IVP SCH (08:44)
[2017-05-21] MEDS: CYCLOBENZAPRINE 10 MG TAB PO SCH ×3 (08:44→16:24)
[2017-05-21] MEDS: CALCIUM CARB/VIT-D 500 MG/200 IU 1 TAB PO SCH ×2 (08:44→21:38)
--- NOTE | 2017-05-21 08:58 | NUR ---
PATIENT LYING IN BED WITH SON AT BEDSIDE. NO DISTRESS NOTED. DENIES ANY PAIN AT THIS TIME. SCHEDULED MEDICATIONS DUE GIVEN. MEJIA CATHETER IN PLACE, DRAINING YELLOW/ORANGE URINE. SAFETY MEASURES IN PLACE, CALL LIGHT WITHIN REACH. WILL CONTINUE TO MONITOR.
[2017-05-21] MEDS ORDERED: ATORVASTATIN 20 MG TAB PO SCH (09:00)
[2017-05-21] MEDS ORDERED: ECOTRIN 81 MG TABEC PO SCH (09:00)
[2017-05-21] MEDS ORDERED: traMADol 50 MG TAB PO PRN (09:40)
[2017-05-21] MEDS ORDERED: MAG SULF 2000 MG/WATER PREMIX 50 ML IV SCH (10:15)
--- NOTE | 2017-05-21 11:00 | NUR ---
MEJIA CATHETER REMOVED PER MD ORDERS. PATIENT TOLERATED PROCEDURE WELL. WILL CONTINUE TO MONITOR.
--- NOTE | 2017-05-21 11:30 | NUR ---
RADIOLOGIST AT BEDSIDE READY TO TAKE PATIENT FOR CT CHEST ANGIOGRAPHY W/WO CONTRAST. PATIENT TAKEN OFF UNIT AT THIS TIME. WILL CONTINUE TO MONITOR WHEN PATIENT RETURNS.
[2017-05-21 12:00] VITALS: BP 118/67
--- NOTE | 2017-05-21 12:00 | NUR ---
PATIENT BACK FROM RADIOLOGY. IN STABLE CONDITION. NO DISTRESS NOTED. DENIES ANY PAIN AT THIS TIME. IVF HOOKED UP AND INFUSING PER ORDERS. SCHEDULED MEDICATIONS DUE GIVEN. PATIENT'S SON AT BEDSIDE FOR TRANSLATION. SAFETY MEASURES IN PLACE, CALL LIGHT WITHIN REACH. WILL CONTINUE TO MONITOR.
[2017-05-21] MEDS: GABAPENTIN 300 MG CAP PO SCH ×2 (12:46→16:24)
[2017-05-21] MEDS: AMITRIPTYLINE 10 MG TAB PO SCH ×2 (12:47→16:24)
[2017-05-21] MEDS: PERPHENAZINE 2 MG TAB PO SCH ×2 (12:47→16:24)
--- NOTE | 2017-05-21 12:50 | NUR ---
PHYSICAL THERAPISTS AT BEDSIDE WORKING WITH PATIENT. WILL CONTINUE TO MONITOR.
[2017-05-21] MEDS ORDERED: AMITRIPTYLINE PO SCH (13:00)
[2017-05-21] MEDS ORDERED: PERPHENAZINE PO SCH (13:00)
--- NOTE | 2017-05-21 13:37 | NUR ---
PATIENT'S HEART RATE AROUND 130-140'S, SINUS TACHY RHYTHM. NOTIFIED DR. SUSHILA MD VERBALIZED UNDERSTANDING. WILL CONTINUE TO MONITOR PATIENT PER MD ORDERS. Addendum: 05/21/17 at 1342 by Moshe Graham RN [ADD TO NOTES]PATIENT DENIES ANY PAIN, ASYMPTOMATIC, SITTING UP IN BED TALKING WITH SON AT BEDSIDE. WILL CONTINUE TO MONITOR.
[2017-05-21] MEDS: HYDROcodone/APAP 7.5/325 MG 1 TAB PO PRN (14:03)
--- NOTE | 2017-05-21 14:09 | NUR ---
PATIENT COMPLAINS OF RIGHT HIP ACHING PAIN 10/27. MEDICATED WITH NORCO PER ORDERS. SAFETY MEASURES IN PLACE, CALL LIGHT WITHIN REACH, FALL PREVENTIONS IN PLACE. WILL CONTINUE TO MONITOR.
--- NOTE | 2017-05-21 15:11 | NUR ---
PATIENT SLEEPING IN BED, AROUSABLE BY VOICE. NO DISTRESS NOTED. DENIES ANY PAIN. CONDITION UNCHANGED. SAFETY MEASURES IN PLACE, CALL LIGHT WITHIN REACH. WILL CONTINUE TO MONITOR.
[2017-05-21 16:00] VITALS: BP 131/75
--- NOTE | 2017-05-21 16:19 | NUR ---
1200 PER DONOVAN AVALOS PT'S SON IS AGREEABLE TO [facility] AND WILL SPEAK WITH REP LUCERO REGARDING PT ONLY HAS [facility]. PER JAZMINE SHE DISCUSSED PAYMENT PLAN WITH SON AND HE IS AGREEABLE. 1530 SPOKE WITH OSCAR IN ADMISSIONS AT [facility] AND PT CAN GO TO ROOM 29B [facility] [phone]. CALLED [facility] AND SCHEDULED GURNEY TRANSPORT WITH QUICK TECHNICIAN AT 9PM.
--- NOTE | 2017-05-21 16:30 | NUR ---
PHYSICAL THERAPY CO-SIGN The Physical Therapy Progress Notes documented by General Milling Superintendent have been reviewed. I CONCUR WITH AM AND PM PRODUCTION TEAM ADVISOR NOTE; CONT PT PER TX PLAN Reviewed/Co-Signed by: Salina Jane PT Documentation Done by: RAMON LOVE PRODUCTION TEAM ADVISOR Addendum: 05/22/17 at 0916 by Salina Jane PT Amended: Links added.
[2017-05-21] MEDS ORDERED: ACET-9529 PO (16:50)
[2017-05-21] MEDS ORDERED: DOCU-299 PO (16:50)
[2017-05-21] MEDS ORDERED: HEPA500056 SUBQ ×2 (16:50→17:03)
[2017-05-21] MEDS ORDERED: ASPI-1173 PO (16:50)
[2017-05-21] MEDS ORDERED: TRAM50TA3 PO (16:50)
[2017-05-21] MEDS ORDERED: ATOR20TA40 PO (16:50)
[2017-05-21] MEDS ORDERED: GABA-638 PO (16:50)
[2017-05-21] MEDS ORDERED: CALC-846 PO (16:50)
[2017-05-21] MEDS ORDERED: HUMSLIDE SUBQ (16:50)
[2017-05-21] MEDS ORDERED: OMEP20TC12 PO (16:50)
[2017-05-21] MEDS ORDERED: [UNRECOGNIZED DRUG - CODE] PO (16:56)
[2017-05-21] MEDS ORDERED: AMIT10TA25 PO (16:57)
[2017-05-21] MEDS: FERRIC GLUCONATE 125 MG in NACL 0.9% 100 ML IV SCH (16:59)
--- NOTE | 2017-05-21 17:10 | NUR ---
PATIENT LYING DOWN IN BED SLEEPING, AROUSABLE BY VOICE. NO DISTRESS NOTED. DENIES ANY PAIN. SON AT BEDSIDE. DR. CONTI AT BEDSIDE REVIEWING PLAN OF CARE WITH PATIENT. PATIENT/SON AWARE THAT PATIENT IS BEING TRANSFERRED TO [facility] LATER TONIGHT AND THAT THE PICKUP TIME FROM [facility]ORT WAS AT 2100. PATIENT/SON VERBALIZED UNDERSTANDING. DR. CONTI ANSWERED ALL OF PATIENT'S/SON'S QUESTIONS REGARDING TRANSFER AT BEDSIDE. SCHEDULED MEDICATIONS DUE GIVEN. SAFETY MEASURES IN PLACE, CALL LIGHT WITHIN REACH. WILL CONTINUE TO MONITOR.
--- NOTE | 2017-05-21 19:20 | NUR ---
REPORT GIVEN TO STOCK ROOM MANAGER NURSE FOR CONTINUITY OF CARE. PATIENT IN STABLE CONDITION. AWAITING FOR [facility]SPORT TO [facility] PATIENT AT 2100.
--- NOTE | 2017-05-21 19:23 | NUR ---
RECEIVED REPORT FROM DAY SHIFT NURSE. PT SLEEPING BUT AROUSABLE. PT'S SON AT BEDSIDE. NO S/S OF DISTRESS NOTED. IV TO LEFT AC #20G WITH NS AT 80 ML/HR, INFUSING WELL. PICTURES TAKEN TO WOUNDS WITH SUTURES LEFT HIP, LEFT MID THIGH AND LOWER EXT. DRESSING CHANGED. PT TO BE DISCHARGED TONIGHT. CALL LIGHT WITHIN REACCH.
[2017-05-21 20:00] VITALS: BP 105/65
--- NOTE | 2017-05-21 21:40 | NUR ---
HEPARIN HELD PER DR. LUBIN'S ORDER.
--- NOTE | 2017-05-21 22:25 | NUR ---
[facility] HERE TO MEDICAL DOCTOR PT ON NATALI. REPORT AND PACKET DISCHARGE GIVEN. REMOVED ID BANDS, TELEMONITOR AND IV CANNULA. PT IN STABLE CONDITION.
== END 2017-05-21 22:25 | DRG 853 ==
LOC: MED 13:22 → MTU 16:01
PROVIDERS: ADMIT Family Medicine Sports Medicine; ATTEND Family Medicine Sports Medicine
PROC: 30233N1 Transfusion of Nonautologous Red Blood Cells into Peripheral Vein, Percutaneous Approach (ICD-10-PCS; 2017-05-18)
PROC: 0QS906Z Reposition Left Femoral Shaft with Intramedullary Internal Fixation Device, Open Approach (ICD-10-PCS; principal; 2017-05-20)
DX: A41.9 Sepsis, unspecified organism (principal); E43 Unspecified severe protein-calorie malnutrition; S72.22XA Displaced subtrochanteric fracture of left femur, initial encounter for closed fracture; D68.59 Other primary thrombophilia; E11.51 Type 2 diabetes mellitus with diabetic peripheral angiopathy without gangrene; D63.8 Anemia in other chronic diseases classified elsewhere; N39.0 Urinary tract infection, site not specified; M85.80 Other specified disorders of bone density and structure, unspecified site; R65.20 Severe sepsis without septic shock; F41.9 Anxiety disorder, unspecified; F32.9 Major depressive disorder, single episode, unspecified; E78.5 Hyperlipidemia, unspecified; R91.1 Solitary pulmonary nodule; K59.00 Constipation, unspecified; D18.1 Lymphangioma, any site; Z68.27 Body mass index [BMI] 27.0-27.9, adult; Z53.8 Procedure and treatment not carried out for other reasons; Z96.641 Presence of right artificial hip joint; Z96.651 Presence of right artificial knee joint; Z71.3 Dietary counseling and surveillance; W06.XXXA Fall from bed, initial encounter; Y92.098 Other place in other non-institutional residence as the place of occurrence of the external cause; Y99.8 Other external cause status; Y93.89 Activity, other specified
CPT/HCPCS: 36415; 51702; 70450; 71010; 71275; 72192; 76536; 76604; 76705; 76942; 80048; 80053; 80305; 81001; 82140; 82150; 82948; 83036; 83605; 83690; 83735; 83880; 84100; 84439; 84443; 84484; 85025; 85610; 85730; 86886; 86900; 86901; 86920; 87040; 87081; 87086; 87186; 93925; 93970; 96374; 97110; 97140; 97530; 99285; C1713; C1763; C9113; J0690; J0696; J1644; J1815; J1885; J2001; J2270; J2405; J2916; J3010; J3475; J3490; J7030; J7060; P9016; Q0092; Q9967